=== PATIENT | male | born 1940 ===

== ENCOUNTER → 2024-06-03 13:37 | Outpatient (REF) | payer OTHER, SELFPAY | LOC: RCS 13:37 | PROVIDERS: ATTENDING PHYSICIAN Internal Medicine Cardiovascular Disease; FAMILY PHYSICIAN Family Medicine | DX: I25.5 Ischemic cardiomyopathy (principal); I51.3 Intracardiac thrombosis, not elsewhere classified | CPT/HCPCS: 93306; Q9950 ==